=== PATIENT | female | born 1985 | race Caucasian/White ===

== ENCOUNTER 2016-11-11 12:34 | Emergency (ER) | payer SELFPAY ==
[~2016-11-11] VITALS: Ht 170.2 cm; Wt 68.0 kg
[2016-11-11 12:58] VITALS: BP 100/51; PULSE 81; RESP 14; TEMP 97.7; O2SAT 94
--- NOTE | 2016-11-11 13:54 | PD ---
HPI Chief Complaint: Psychiatric Symptoms Time Seen by Provider: 13:35 Travel History International Travel<30 days: No Contact w/Intl Traveler<30days: No Traveled to known affect area: No History of Present Illness HPI 31-year-old female complains of anxiety panic attack. Patient has history anxiety panic attack in the past. Patient takes Xanax occasionally for that. Patient also has history of opiate addiction on methadone now. Patient states that she had anxiety panic attack and took some Xanax prior coming to the emergency room. Patient denies any headache. Patient denies any chest pain or shortness of breath. Patient denies abdominal pain. Patient denies any focal weakness or numbness of the extremity. Patient denies any alcohol abuse. Patient denies any illicit drug abuse. PFSH Past Medical History Anxiety: Yes Diminished Hearing: No Tetanus Vaccination: Unknown Influenza Vaccination: No ?: Unknown Past Surgical History Surgical History: Unable to Obtain Social History Alcohol Use: No Tobacco Use: No Substance Use: No Allergies-Medications (Allergen,Severity, Reaction): Coded Allergies: No Known Allergies (Unverified , 11/11/16) Reported Meds & Prescriptions Reported Meds & Active Scripts Active No Active Prescriptions or Reported Medications Review of Systems General / Constitutional: No: Fever Eyes: No: Visual changes HENT: No: Headaches Cardiovascular: No: Chest Pain or Discomfort Respiratory: No: Shortness of Breath Gastrointestinal: No: Abdominal Pain Genitourinary: No: Dysuria Musculoskeletal: No: Pain Skin: No Rash Neurologic: No: Weakness Psychiatric: No: Depression Endocrine: No: Polydipsia Hematologic/Lymphatic: No: Easy Bruising Physical Exam Narrative GENERAL: Well-nourished, well-developed patient. SKIN: Warm and dry. HEAD: Normocephalic. EYES: No scleral icterus. No injection or drainage. NECK: Supple, trachea midline. No JVD or lymphadenopathy. CARDIOVASCULAR: Regular rate and rhythm without murmurs, gallops, or rubs. RESPIRATORY: Breath sounds equal bilaterally. No accessory muscle use. GASTROINTESTINAL: Abdomen soft, non-tender, nondistended. MUSCULOSKELETAL: No cyanosis, or edema. BACK: Nontender without obvious deformity. No CVA tenderness. Neurologic exam: Patient is drowsy however answer questions appropriately. Patient moves all extremity well. No obvious focal neurological deficit. Patient is steady on her feet. Patient walked to bathroom all by herself. Data Data Last Documented VS Vital Signs Date Time Temp Pulse Resp B/P Pulse Ox O2 Delivery O2 Flow Rate FiO2 11/11/16 13:03 78 14 11/11/16 12:58 97.7 100/51 94 MDM Medical Decision Making Medical Screen Exam Complete: Yes Emergency Medical Condition: Yes Differential Diagnosis Differential diagnosis including anxiety panic attack, substance abuse, drug withdrawal. Narrative Course 31-year-old female was brought in by EMS for anxiety panic attack. History of substance abuse on methadone. Patient took Xanax prior coming to the emergency room. 1350 p.m. Patient refused treatment. Patient wants to leave. Diagnosis Primary Impression: Anxiety disorder due to general medical condition with panic attack Patient Instructions: General Instructions Additional Instructions: Patient does not want any treatment. Patient wants to leave. Advised patient follow with local physician. Med/Other Pt SpecificInfo: No Change to Meds Scripts No Active Prescriptions or Reported Meds Disposition: 07 AGAINST MEDICAL ADVICE Condition: Stable Neftali Lake MD Nov 11, 2016 13:54
== END 2016-11-11 14:02 | disposition left against medical advice (07) ==
LOC: NEPA 12:34
DX: F41.9 Anxiety disorder, unspecified (principal); F41.0 Panic disorder [episodic paroxysmal anxiety]
CPT/HCPCS: 99283